=== PATIENT | male | born 1995 | race Two or more races ===

== ENCOUNTER 2016-03-21 11:04 | Emergency (ER) | payer OTHER ==
[2016-03-21] MEDS ORDERED: BUFFERED LIDOCAINE 10 ML SYRINGE ONE (12:04)
== END 2016-03-21 12:42 | disposition home or self-care (01) ==
DX: S62.635A Displaced fracture of distal phalanx of left ring finger, initial encounter for closed fracture (principal); S67.193A Crushing injury of left middle finger, initial encounter; L60.8 Other nail disorders; W23.0XXA Caught, crushed, jammed, or pinched between moving objects, initial encounter